=== PATIENT | female | born 1965 | race Caucasian/White ===

== ENCOUNTER 2018-03-14 14:52 | Observation (INO) | payer OTHER ==
--- NOTE | 2018-03-14 16:22 | PDOC ---
Attending Attestation - Resident Resident Name: Yudelka Morfin - ED Attending Attestation I have performed the following: I have examined & evaluated the patient, The case was reviewed & discussed with the resident, I agree w/resident's findings & plan, Exceptions are as noted - HPI HPI: 03/14/18 16:16 52 year old female with history of anemia sent in for Hgb ~6.5. The patient endorsed some mild SOB and VICTOR, but denies CP. Pt states that she still has her menstrual cycle every month. Lately, has noted to have heavier periods. She is currently on her period. Went for routine blood work and noted a Hgb of ~6.5. Sent the patient in for blood transfusion. - Physicial Exam PE: 03/14/18 16:28 GENERAL: Awake, alert, and fully oriented, in no acute distress HEAD: No signs of trauma EYES: EOMI, sclera anicteric, conjunctiva clear ENT: Auricles normal inspection, hearing grossly normal, nares patent, NECK: Normal ROM, supple, LUNGS: Breath sounds equal, clear to auscultation bilaterally. No wheezes, and no crackles HEART: Regular rate and rhythm, normal S1 and S2, no murmurs, rubs or gallops ABDOMEN: Soft, nontender, No guarding, no rebound. No masses EXTREMITIES: Normal range of motion, no edema. No clubbing or cyanosis. No cords, erythema, or tenderness NEUROLOGICAL: Cranial nerves II through XII grossly intact. Normal speech, normal gait SKIN: Warm, Dry, normal turgor, no rashes or lesions noted. - Medical Decision Making 03/14/18 16:29 Vital Signs Temp Pulse Resp BP Pulse Ox 98.5 F 95 H 18 131/74 99 03/14/18 14:55 03/14/18 14:55 03/14/18 14:55 03/14/18 14:55 03/14/18 14:55 52 year old female presents with anemia. Will need PRBC transfusion Pt denies rectal bleeding. I suspect her menstrual cycle as a source. However, will need further workup as an inpatient for anemia. Admit. Heart Score/ECG Review #1 ECG reviewed & interpreted by me at: 16:15 03/14/18 16:22 NSR 84, no std/erick, low voltage QRS, QTC 470 msec
[2018-03-14 16:23] LABS: BASO % 0.9 % (0-2.0); EOS % 2.2 % (0-4.5); HEMATOCRIT 21.9 % (32.4-45.2); LYMPH % 17.7 % (8-40); MCHC 28.8 g/dl (32.0-36.0); MEAN CELL VOLUME 64.1 fl (80-96); MEAN PLT VOLUME 7.6 fl (7.5-11.1); MONO % 7.4 % (3.8-10.2); NEUT % 71.8 % (42.8-82.8); PLATELET COUNT 582 K/MM3 (134-434); RBC 3.42 M/mm3 (3.60-5.2); RDW 18.4 % (11.6-15.6); WHITE BLOOD COUNT 6.7 K/mm3 (4.0-10.0)
[2018-03-14 16:26] LABS: HEMOGLOBIN 6.3 GM/dL (10.7-15.3); MCH 18.5 pg (25.7-33.7)
--- NOTE | 2018-03-14 16:32 | PDOC ---
History of Present Illness - General Chief Complaint: Revisit, Lab Variance Stated Complaint: ABDNORMAL BLOOD WORK Time Seen by Provider: 03/14/18 15:19 - History of Present Illness Initial Comments: 52yo F with previous low hemoglobin requiring transfusion last year presenting with low hemoglobin. The lab test was routine and performed by Dr. Hunter. Patient was told today to come into the emergency department for a hemoglobin of 6.3. Patient reports that her last menstural period was two days ago and was heavier than usual, requiring 7 pads a day (more than the usual 3 or 4). The menstrual period lasted five days which is normal for her. Patient reports heavy periods for the last 3 or 4 months. Last year, her decontamination worker diagnosed her with a uterine pathology for which she has a Friday appointment (patient did not remember which doctor or what diagnosis). She reports some dyspnea on exertion, but denies fever, chills, chest pain, abdominal pain, bloody stools, or dark tarry stools. 03/14/18 16:56 Past History - Past Medical History Allergies/Adverse Reactions: Allergies Allergy/AdvReac Type Severity Reaction Status Date / Time No Known Allergies Allergy Verified 03/14/18 14:57 Home Medications: Ambulatory Orders Folic Acid - 1 mg PO DAILY 03/14/18 Anemia: Yes (with transfusions) Cancer: No Cardiac Disorders: No CVA: No COPD: No Dementia: No HTN: No Hypercholesterolemia: No Seizures: No - Surgical History Abdominal Surgery: No Neurologic Surgery: No - Suicide/Smoking/Psychosocial Hx Smoking History: Never smoked Hx Alcohol Use: No Drug/Substance Use Hx: No Substance Use Type: None Review of Systems - Review of Systems Comments:: Constitutional: no fever, no chills Cardiovascular: no chest pain, no palpitations Respiratory: +shortness of breath, no cough Gastrointestinal: no abdominal pain, no nausea, no vomiting Genitourinary: no dysuria, no frequency Musculoskeletal: no myalgia, no arthralgia Skin: no rash, no itching Neurologic: no headache, no dizziness *Physical Exam - Vital Signs Last Vital Signs Temp Pulse Resp BP Pulse Ox 98.5 F 95 H 18 131/74 99 03/14/18 14:55 03/14/18 14:55 03/14/18 14:55 03/14/18 14:55 03/14/18 14:55 - Physical Exam Comments: General: Awake, alert, and fully oriented, in no acute distress Head: no signs of trauma Eyes: EOMI, sclera anicteric ENT: Moist mucus membranes, Neck: Normal ROM, supple Lungs: Lungs clear, Normal breath sounds Cardio: Regular rhythm, S1 and S2 present, Abdomen: Soft, nontender, normal bowel sounds Extremities: Normal range of motion, Distal pulses present. SKIN: Warm, Dry, normal turgor, no rashes or lesions noted Neurologic: Cranial nerves II through XII grossly intact. Normal speech ED Treatment Course - LABORATORY CBC & Chemistry Diagram: 03/14/18 15:56 03/14/18 15:56 - ADDITIONAL ORDERS Additional order review: 03/14/18 15:56 RBC 3.42 L MCV 64.1 L MCHC 28.8 L RDW 18.4 H MPV 7.6 Neutrophils % 71.8 Lymphocytes % 17.7 D Monocytes % 7.4 Eosinophils % 2.2 Basophils % 0.9 Medical Decision Making - Medical Decision Making Call from lab. Hgb of 6.3. Will order 2 units of PRBCs. Anemia likely due to abnormal uterine bleeding. Menstrual period is at the end of her cycle, only using about 1 pad/day. Fecal occult blood test ordered. Patient denies bloody stool, dark tarry stool, hemoptysis. 03/14/18 16:28 Spoke with hospitalist team who will accept patient for observation. Laboratory Tests 03/14/18 03/14/18 03/14/18 15:56 15:56 15:56 WBC 6.7 RBC 3.42 L Hgb 6.3 L* Hct 21.9 L D MCV 64.1 L MCH 18.5 L D MCHC 28.8 L RDW 18.4 H Plt Count 582 H D MPV 7.6 Absolute Neuts (auto) 4.8 Neutrophils % 71.8 Lymphocytes % 17.7 D Monocytes % 7.4 Eosinophils % 2.2 Basophils % 0.9 Nucleated RBC % 0 Sodium 138 Potassium 4.1 Chloride 106 Carbon Dioxide 27 Anion Gap 5 L BUN 9 Creatinine 0.6 Creat Clearance w eGFR > 60 Random Glucose 103 Calcium 8.7 Total Bilirubin 0.2 AST 17 ALT 16 Alkaline Phosphatase 93 Troponin I < 0.02 Total Protein 7.1 Albumin 3.4 Stool Occult Blood Blood Type B POSITIVE Antibody Screen Negative Crossmatch See Detail 03/14/18 16:53 WBC RBC Hgb Hct MCV MCH MCHC RDW Plt Count MPV Absolute Neuts (auto) Neutrophils % Lymphocytes % Monocytes % Eosinophils % Basophils % Nucleated RBC % Sodium Potassium Chloride Carbon Dioxide Anion Gap BUN Creatinine Creat Clearance w eGFR Random Glucose Calcium Total Bilirubin AST ALT Alkaline Phosphatase Troponin I Total Protein Albumin Stool Occult Blood Negative Blood Type Antibody Screen Crossmatch *DC/Admit/Observation/Transfer Diagnosis at time of Disposition: Anemia - Discharge Dispostion Condition at time of disposition: Stable Decision to Admit order: Yes - Referrals - Patient Instructions - Post Discharge Activity
[2018-03-14 16:43] LABS: ALBUMIN 3.4 g/dl (3.4-5.0); ANION GAP 5 (8-16); BILIRUBIN,TOTAL 0.2 mg/dL (0.2-1.0); BLOOD UREA NITROGEN 9 mg/dL (7-18); CALCIUM 8.7 mg/dL (8.5-10.1); CHLORIDE 106 mmol/L (98-107); CO2 27 mmol/L (21-32); CREATININE 0.6 mg/dL (0.55-1.02); GLUCOSE,RANDOM 103 mg/dL (74-106); POTASSIUM 4.1 mmol/L (3.5-5.1); SGOT/AST 17 U/L (15-37); SGPT/ALT 16 U/L (12-78); SODIUM 138 mmol/L (136-145)
[2018-03-14 16:45] LABS: ALK PHOS 93 U/L (45-117); TOT PROT 7.1 g/dl (6.4-8.2)
--- NOTE | 2018-03-14 19:25 | HP ---
CHIEF COMPLAINT: Fatigue, Vaginal Bleeding PCP: Dr. Carrera HISTORY OF PRESENT ILLNESS: This is a 52 y/o woman with a past medical history of Anemia (blood transfusion , 2-3 yrs ago). Who presents to the ED with her family sent in by her PCP for admission, Anemia. Patient reports having increased fatigue and heavy vaginal bleeding. Patient reports having her menses Day 5, using 2-3 sanitary pads/hr with small clots and mild abdominal cramping. Patient denies SOB at present. Patient reports having an appt with her Lens Matcher this Friday for same. Patient denies fever, chills, cough, CP, palpitations, N/V/D, constipation, dysuria. 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, homemaker Family History: Non-contributory Allergies No Known Allergies Allergy (Verified 03/14/18 14:57) HOME MEDICATIONS: Home Medications Medication Instructions Recorded Folic Acid - 1 mg PO DAILY 03/14/18 REVIEW OF SYSTEMS CONSTITUTIONAL: generalized weakness, malaise Absent: fever, chills, diaphoresis, loss of appetite, weight change HEENT: Absent: rhinorrhea, nasal congestion, throat pain, throat swelling, difficulty swallowing, mouth swelling, ear pain, eye pain, visual changes CARDIOVASCULAR: Absent: chest pain, syncope, palpitations, irregular heart rate, lightheadedness , peripheral edema RESPIRATORY: Absent: cough, shortness of breath, dyspnea with exertion, orthopnea, wheezing, stridor, hemoptysis GASTROINTESTINAL: Absent: abdominal pain, abdominal distension, nausea, vomiting, diarrhea, constipation, melena, hematochezia GENITOURINARY: Absent: dysuria, frequency, urgency, hesitancy, hematuria, flank pain, genital pain MUSCULOSKELETAL: Absent: myalgia, arthralgia, joint swelling, back pain, neck pain SKIN: Absent: rash, itching, pallor HEMATOLOGIC/IMMUNOLOGIC: Absent: easy bleeding, easy bruising, lymphadenopathy, frequent infections ENDOCRINE: Absent: unexplained weight gain, unexplained weight loss, heat intolerance, cold intolerance NEUROLOGIC: Absent: headache, focal weakness or paresthesias, dizziness, unsteady gait, seizure, mental status changes, bladder or bowel incontinence PSYCHIATRIC: Absent: anxiety, depression, suicidal or homicidal ideation, hallucinations. PHYSICAL EXAMINATION Vital Signs - 24 hr 03/14/18 03/14/18 03/14/18 14:55 16:53 17:51 Temperature 98.5 F 98.4 F Pulse Rate 95 H Pulse Rate [ 82 Right Radial] Respiratory 18 20 Rate Blood Pressure 131/74 Blood Pressure 117/77 [Left Arm] O2 Sat by Pulse 99 99 100 Oximetry (%) 03/14/18 18:08 Temperature 98.3 F Pulse Rate Pulse Rate [ 87 Right Radial] Respiratory 20 Rate Blood Pressure Blood Pressure 126/75 [Left Arm] O2 Sat by Pulse 100 Oximetry (%) GENERAL: Awake, alert, and fully oriented, in no acute distress. HEAD: Normal with no signs of trauma. EYES: Pupils equal, round and reactive to light, extraocular movements intact, sclera anicteric, conjunctiva clear, pale. No lid lag. EARS, NOSE, THROAT: Ears normal, nares patent, oropharynx clear without exudates. Moist mucous membranes. NECK: Normal range of motion, supple without lymphadenopathy, JVD, or masses. LUNGS: Breath sounds equal, clear to auscultation bilaterally. No wheezes, and no crackles. No accessory muscle use. HEART: Regular rate and rhythm, normal S1 and S2 without murmur, rub or gallop. ABDOMEN: Soft, nontender, not distended, normoactive bowel sounds, no guarding, no rebound, no masses. No hepatomegaly or splenomegaly. MUSCULOSKELETAL: Normal range of motion at all joints. No bony deformities or tenderness. No CVA tenderness. UPPER EXTREMITIES: 2+ pulses, warm, well-perfused. No cyanosis. No clubbing. No peripheral edema. LOWER EXTREMITIES: 2+ pulses, warm, well-perfused. No calf tenderness. No peripheral edema. NEUROLOGICAL: Cranial nerves II-XII intact. Normal speech. Normal gait. PSYCHIATRIC: Cooperative. Good eye contact. Appropriate mood and affect. SKIN: Warm, dry, normal turgor, no rashes or lesions noted, normal capillary refill. Laboratory Results - last 24 hr 03/14/18 03/14/18 03/14/18 15:56 15:56 15:56 WBC 6.7 RBC 3.42 L Hgb 6.3 L* Hct 21.9 L D MCV 64.1 L MCH 18.5 L D MCHC 28.8 L RDW 18.4 H Plt Count 582 H D MPV 7.6 Absolute Neuts (auto) 4.8 Neutrophils % 71.8 Lymphocytes % 17.7 D Monocytes % 7.4 Eosinophils % 2.2 Basophils % 0.9 Nucleated RBC % 0 Sodium 138 Potassium 4.1 Chloride 106 Carbon Dioxide 27 Anion Gap 5 L BUN 9 Creatinine 0.6 Creat Clearance w eGFR > 60 Random Glucose 103 Calcium 8.7 Total Bilirubin 0.2 AST 17 ALT 16 Alkaline Phosphatase 93 Troponin I < 0.02 Total Protein 7.1 Albumin 3.4 Stool Occult Blood Blood Type B POSITIVE Antibody Screen Negative Crossmatch See Detail 03/14/18 16:53 WBC RBC Hgb Hct MCV MCH MCHC RDW Plt Count MPV Absolute Neuts (auto) Neutrophils % Lymphocytes % Monocytes % Eosinophils % Basophils % Nucleated RBC % Sodium Potassium Chloride Carbon Dioxide Anion Gap BUN Creatinine Creat Clearance w eGFR Random Glucose Calcium Total Bilirubin AST ALT Alkaline Phosphatase Troponin I Total Protein Albumin Stool Occult Blood Negative Blood Type Antibody Screen Crossmatch ASSESSMENT/PLAN: 52 y/o woman with a PMHx of Anemia. Placed in Observation for Symptomatic Anemia for further evaluation of their emergent condition. Plan: 1. Symptomatic Anemia - Likely secondary to Menorrhagia - Hgb 6.3 - Pt received 1PRBC in ED, 2nd pending - Add on FE, TIBC, Ferritin to prior lab draw - Repeat CBC in am - Stool Occult- negative - Monitor vitals - f/u with WORKERS COMPENSATION CLAIMS ANALYST on Friday - Continue folic acid - Consider iron supplements, with colace 2. Genaralized Weakness- Malaise - See Above 3. FEN - PO fluids as tolerated - Replete lytes prn - Regular Diet 4. DVT ppx - OOB - SCDs - Hold AC secondary to Anemia Code Status: Full Code Dispo: Observation Problem List - Problem (1) Anemia Code(s): D64.9 - ANEMIA, UNSPECIFIED (2) Dysfunctional uterine bleeding Code(s): N93.8 - OTHER SPECIFIED ABNORMAL UTERINE AND VAGINAL BLEEDING Visit type - Emergency Visit Emergency Visit: Yes ED Registration Date: 03/14/18 Care time: The patient presented to the Emergency Department on the above date and was hospitalized for further evaluation of their emergent condition. - New Patient This patient is new to me today: Yes Date on this admission: 03/14/18 - Critical Care Critical Care patient: No Hospitalist Screening - Colonoscopy Questionnaire Colonoscopy Questionnaire: Colonoscopy Questionnaire - Patient: 50 - 75 years old and never had a screening colonoscopy: No History of colon or rectal polyps, or CA: No History of IBD, Crohn's disease or UC: No History of abdominal radiation therapy as a child: No - Relative: 1 with colon or rectal CA, or polyps at age 60 or younger: No Colon or rectal CA diagnosed at age 45 or younger: No Multiple relatives with colon or rectal CA: No - Outcome: Screening Result: Negative Screen
[2018-03-14 20:41] LABS: ANISOCYTOSIS 3+; MACROCYTOSIS 1+
[2018-03-14 20:42] LABS: OVALOCYTE 1+; PLATELET ESTIMATE INCREASED
[2018-03-14 21:28] VITALS: BMI 28.7
[2018-03-15 07:39] LABS: BASO % 1.1 % (0-2.0); EOS % 1.9 % (0-4.5); HEMATOCRIT 27.5 % (32.4-45.2); HEMOGLOBIN 8.5 GM/dL (10.7-15.3); LYMPH % 21.1 % (8-40); MCH 21.4 pg (25.7-33.7); MCHC 31.1 g/dl (32.0-36.0); MEAN CELL VOLUME 68.8 fl (80-96); MEAN PLT VOLUME 7.2 fl (7.5-11.1); MONO % 9.9 % (3.8-10.2); PLATELET COUNT 489 K/MM3 (134-434); WHITE BLOOD COUNT 6.7 K/mm3 (4.0-10.0)
[2018-03-15 08:09] LABS: CHLORIDE 106 mmol/L (98-107); POTASSIUM 4.3 mmol/L (3.5-5.1); SODIUM 139 mmol/L (136-145)
[2018-03-15 08:16] LABS: ANION GAP 6 (8-16); BLOOD UREA NITROGEN 7 mg/dL (7-18); CALCIUM 8.5 mg/dL (8.5-10.1); CO2 27 mmol/L (21-32); CREATININE 0.6 mg/dL (0.55-1.02); GLUCOSE,RANDOM 82 mg/dL (74-106)
[2018-03-15 08:49] LABS: PLATELET ESTIMATE INCREASED
[2018-03-15 08:51] LABS: ADD RBC MORPHOLOGY YES
[2018-03-15] MEDS: FOLIC ACID 1 MG TABLET (FP) PO SCH (10:17)
--- NOTE | 2018-03-15 11:25 | PN ---
Progress Note, Physician Chief Complaint: SENT FROM MY OFFICE FOR ANEMIA H/H .03/28 TRANSFUSED HERE WITH PRBC NAD EVENTS AND NOTES REVIEWED C/O VAGINAL BLEEDING - Current Medication List Current Medications: Active Medications Folic Acid (Folic Acid -) 1 mg PO DAILY YUMI Last Admin: 03/15/18 10:17 Dose: 1 mg - Objective Vital Signs: Vital Signs Temperature 97.8 F 03/15/18 10:16 Pulse Rate 77 03/15/18 10:16 Respiratory Rate 20 03/15/18 10:16 Blood Pressure 116/81 03/15/18 10:16 O2 Sat by Pulse Oximetry (%) 100 03/14/18 22:26 Constitutional: Yes: No Distress Eyes: Yes: WNL HENT: Yes: WNL Neck: Yes: WNL Cardiovascular: Yes: WNL Respiratory: Yes: WNL Gastrointestinal: Yes: WNL Genitourinary: Yes: Vaginal Bleeding Musculoskeletal: Yes: WNL Extremities: Yes: WNL Edema: No Peripheral Pulses WNL: Yes Integumentary: Yes: WNL Wound/Incision: Yes: Clean/Dry Neurological: Yes: WNL ...Motor Strength: WNL Psychiatric: Yes: WNL Labs: CBC, BMP 03/15/18 06:55 03/15/18 06:55 Problem List - Problems (1) Anemia Code(s): D64.9 - ANEMIA, UNSPECIFIED (2) Abnormal menses Code(s): N92.6 - IRREGULAR MENSTRUATION, UNSPECIFIED (3) Dysfunctional uterine bleeding Code(s): N93.8 - OTHER SPECIFIED ABNORMAL UTERINE AND VAGINAL BLEEDING Assessment/Plan CHECK [facility] HAS APPOINTMENT TOMORROW WITH DR MOJICA DIRECT OF REAL ESTATE HEME WORKUP IN PROGRESS CHECK CBC IN AM IF H/H STALE CAN GO HOME
--- NOTE | 2018-03-15 20:03 | EKG ---
Test Reason : Blood Pressure : / mmHG Vent. Rate : 084 BPM Atrial Rate : 084 BPM P-R Int : 138 ms QRS Dur : 070 ms QT Int : 398 ms P-R-T Axes : 056 016 024 degrees QTc Int : 470 ms NORMAL SINUS RHYTHM LOW VOLTAGE QRS BORDERLINE ECG WHEN COMPARED WITH ECG OF 16-SEP-2015 12:38, PREMATURE VENTRICULAR COMPLEXES ARE NO LONGER PRESENT PREMATURE ATRIAL COMPLEXES ARE NO LONGER PRESENT Confirmed by TRELL SALMON, DEBBIE ([id number]) on 03/15/2018 8:02:42 PM Referred By: Confirmed By:DEBBIE CAI MD
[2018-03-16 06:36] VITALS: TEMP 97.8
--- NOTE | 2018-03-16 07:36 | DS ---
Physical Examination Vital Signs: Vital Signs Temperature 97.8 F 03/16/18 06:00 Pulse Rate 69 03/16/18 06:00 Respiratory Rate 18 03/16/18 06:00 Blood Pressure 114/79 03/16/18 06:00 O2 Sat by Pulse Oximetry (%) 98 03/16/18 02:00 Constitutional: Yes: No Distress Eyes: Yes: WNL HENT: Yes: WNL Neck: Yes: WNL Cardiovascular: Yes: WNL Respiratory: Yes: WNL Gastrointestinal: Yes: WNL Renal/: Yes: WNL Musculoskeletal: Yes: WNL Extremities: Yes: WNL Edema: No Peripheral Pulses WNL: Yes Integumentary: Yes: WNL Wound/Incision: Yes: Clean/Dry Neurological: Yes: WNL ...Motor Strength: WNL Psychiatric: Yes: WNL Labs: CBC, BMP 03/15/18 06:55 03/15/18 06:55 Discharge Summary Reason For Visit: ANEMIA Current Active Problems Anemia (Acute) Procedures: Principal: transfused prbc Hospital Course: admitted for acute anemia, likely iron def., transfused prbc, can go home after iron transfusion and hematolgy consult Condition: Stable - Instructions Diet, Activity, Other Instructions: see oncology Dr Mir Equipment Cleaner And Tester Dr Gabriella Carrera this week for labs Referrals: Jet Carrera MD [Primary Care Provider] - Disposition: HOME - Home Medications Comprehensive Discharge Medication List: Ambulatory Orders Folic Acid - 1 mg PO DAILY 03/14/18
[2018-03-16 08:06] LABS: SERUM IRON SATURATION 2 % (15-55); TOTAL IRON BINDING CAPACITY 469 ug/dL (250-450); UIBC 459 ug/dL (131-425)
[2018-03-16 08:25] LABS: HEMATOCRIT 30.5 % (32.4-45.2); HEMOGLOBIN 9.4 GM/dL (10.7-15.3); MCH 21.3 pg (25.7-33.7); MCHC 30.9 g/dl (32.0-36.0); MEAN PLT VOLUME 7.3 fl (7.5-11.1); PLATELET COUNT 524 K/MM3 (134-434); RBC 4.42 M/mm3 (3.60-5.2); RDW 22.2 % (11.6-15.6); WHITE BLOOD COUNT 6.4 K/mm3 (4.0-10.0)
[2018-03-16] MEDS ORDERED: IRON SUCROSE INJECTION 200 MG in SODIUM CHLORIDE 240 ML IVPB ONE (09:00)
[2018-03-16] MEDS ORDERED: IRON SUCROSE INJECTION 200 MG in SODIUM CHLORIDE 100 ML IVPB ONE (09:00)
[2018-03-16] MEDS: FOLIC ACID 1 MG TABLET (FP) PO SCH (09:21)
[2018-03-16 10:14] VITALS: BP 114/77; PULSE 76
== END 2018-03-16 10:46 | disposition home or self-care (01) ==
LOC: JER 14:52 → JERBED 18:17 → J5S 21:02
PROVIDERS: ADMIT Family Medicine; ATTEND Family Medicine
PROC: 30233N1 Transfusion of Nonautologous Red Blood Cells into Peripheral Vein, Percutaneous Approach (ICD-10-PCS; principal; 2018-03-14)
PROC: 3E033GC Introduction of Other Therapeutic Substance into Peripheral Vein, Percutaneous Approach (ICD-10-PCS; 2018-03-14)
DX: D64.9 Anemia, unspecified (principal); N92.6 Irregular menstruation, unspecified; N93.8 Other specified abnormal uterine and vaginal bleeding
CPT/HCPCS: 36415; 36430; 80048; 80053; 82272; 82728; 83540; 83550; 84484; 85025; 85027; 86850; 86900; 86901; 86922; 93005; 93010; 96365; 99285-25; G0378; J1756; P9038; P9058

== ENCOUNTER 2018-04-27 05:45 | Inpatient (IN) | payer OTHER ==
[2018-04-22 17:18] VITALS: BMI 28.3
[2018-04-27] MEDS ORDERED: PROPOFOL 20 ML ONE ×2 (12:58→15:06)
[2018-04-27] MEDS ORDERED: fentaNYL CITRATE 250 MCG/5 ML VIAL ONE (12:58)
[2018-04-27] MEDS ORDERED: ROCURONIUM BROMIDE 50 MG/5 ML VIAL ONE (12:58)
[2018-04-27] MEDS ORDERED: ROPIVACAINE HCL 0.5% 30ML VIAL ONE (14:14)
[2018-04-27] MEDS ORDERED: MIDAZOLAM HCL 2 MG/2 ML SINGLE DOSE VIAL ONE ×2 (14:16)
[2018-04-27] MEDS ORDERED: DEXAMETHASONE SOD PHOSPHATE/PF 10 MG/ML SDV ONE (14:21)
[2018-04-27] MEDS ORDERED: VASOPRESSIN 20 UNITS/ML VIAL IV ONE ×4 (14:29→15:16)
[2018-04-27] MEDS ORDERED: METHYLERGONOVINE MALEATE 0.2 MG/1 ML AMP IM PRN (14:30)
[2018-04-27] MEDS ORDERED: IBUPROFEN 600 MG TABLET (FP) PO PRN (14:30)
[2018-04-27] MEDS ORDERED: ACETAMINOPHEN 325 MG TABLET (FP) PO PRN (14:30)
[2018-04-27] MEDS ORDERED: oxyCODONE HCL 5 MG TABLET PO PRN (14:30)
--- NOTE | 2018-04-27 14:30 | HP ---
History & Physical Update - History History: No Change - Physical Physical: No Change - Assessment Assessment: No Change - Plan Plan: No Change (Uterine fibroid, for abdominal myomectomy)
[2018-04-27] MEDS ORDERED: CEFAZOLIN 2 GM/D5W 2 GM/50 ML ML IVPB ONE (14:45)
[2018-04-27] MEDS ORDERED: SUCCINYLCHOLINE CHLORIDE 200 MG/10 ML VIAL ONE (15:07)
[2018-04-27] MEDS ORDERED: ceFAZolin SODIUM 1 GM VIAL IVPB ONE (15:25)
[2018-04-27] MEDS ORDERED: ACETAMINOPHEN INJECTION 100 ML IVPB ONE (15:34)
[2018-04-27] MEDS ORDERED: NEOSTIGMINE METHYLSULFATE 0.5 MG/ML - 10 ML MDV ONE (15:43)
[2018-04-27] MEDS ORDERED: KETOROLAC TROMETHAMINE 30 MG/1 ML VIAL ONE (15:43)
[2018-04-27] MEDS ORDERED: GLYCOPYRROLATE 0.2 MG/1 ML VIAL ONE (15:43)
[2018-04-27] MEDS ORDERED: IBUPROFEN 800 MG/8 ML IJ IVPB PRN ×2 (16:00→22:35)
[2018-04-27] MEDS ORDERED: ONDANSETRON 4 MG/2 ML VIAL IVPUSH PRN ×2 (16:42)
[2018-04-27] MEDS ORDERED: PROMETHAZINE HCL 25 MG/1 ML VIAL IVPB PRN (16:42)
[2018-04-27] MEDS ORDERED: PROMETHAZINE HCL 25 MG/1 ML VIAL IVPUSH PRN (16:42)
[2018-04-27] MEDS ORDERED: HYDROmorphone *PCA* 10MG/50ML DISP.SYRIN PCA SCH (16:45)
--- NOTE | 2018-04-27 16:51 | OP ---
<Sindi Dyson - Last Filed: 04/27/18 16:51> Operative Note - Note: Operative Date: 04/27/18 Pre-Operative Diagnosis: Fibroids Operation: Open abdominal myomectomy Post-Operative Diagnosis: Same as Pre-op Surgeon: Francheska Kenny Post Tronic Machine Operator: Sindi Dyson (second assist: Sebastien Portillo PA-C) Anesthesiologist/EVENT PROMOTER: Joey Lopez (Tap block) Anesthesia: General Specimens Removed: One large fibroid, one small fibroid Estimated Blood Loss (mls): 50 Drains, Volume Out (mls): 300 (martinez-clear) Fluid Volume Replaced (mls): 1,100 Operative Report Dictated: Yes <Francheska Kenny - Last Filed: 04/29/18 20:42> Operative Note - Note: Pre-Operative Diagnosis: dictation number [id number]
[2018-04-27] MEDS ORDERED: HYDROmorphone *PCA* 10MG/50ML DISP.SYRIN PCA ONE (16:56)
--- NOTE | 2018-04-27 16:57 | SURG ---
Surgery Vice President Of Software Development Note Vice President Of Software Development: Sindi Dyson PA-C (Suzy) Date of Service: 04/27/18 Diagnosis: Fibroids Procedure: Open abdominal myomectomy I was present for the entirety of the operative procedure. For further detail, please refer to operative report.
[2018-04-27] MEDS: LACTATED RINGERS SOLUTION 1,000 ML IV SCH ×2 (18:54→19:20)
[2018-04-27] MEDS: PANTOPRAZOLE SODIUM 40 MG VIAL IVPUSH SCH (22:14)
[2018-04-28 07:10] LABS: HEMATOCRIT 29.2 % (32.4-45.2); HEMOGLOBIN 9.3 GM/dL (10.7-15.3); LYMPH % 6.6 % (8-40); MCH 26.1 pg (25.7-33.7); MCHC 31.8 g/dl (32.0-36.0); MEAN CELL VOLUME 81.9 fl (80-96); MEAN PLT VOLUME 7.4 fl (7.5-11.1); MONO % 7.3 % (3.8-10.2); NEUT % 86.1 % (42.8-82.8); PLATELET COUNT 332 K/MM3 (134-434); RBC 3.57 M/mm3 (3.60-5.2); RDW 29.5 % (11.6-15.6); WHITE BLOOD COUNT 9.4 K/mm3 (4.0-10.0)
--- NOTE | 2018-04-28 07:12 | PN ---
Progress Note (short form) - Note Progress Note: 52 yo status post abdominal myomectomy, seen and evaluated. She's lying in bed; she only c/o mild discomfort. PE : Chest : CTA, no rales Hear : S1S2, RRR, no murmur. ABD : Soft, dressing dry and intact + incision pain ASS / Plan : Status post myomectomy Continue analgesia Ambulation D/C martinez catheter and IV fluid Regular diet F/U repeat CBC
[2018-04-28] MEDS: ACETAMINOPHEN 325 MG TABLET (FP) PO PRN (08:10)
--- NOTE | 2018-04-28 08:32 | PN ---
Progress Note (short form) - Note Progress Note: Anesthesia Post op/Pain Pt seen and examined S:Alert and awake comfortable O: Vital Signs Temperature 97.9 F 04/28/18 06:00 Pulse Rate 57 L 04/28/18 06:00 Respiratory Rate 04/28/18 06:00 Blood Pressure 95/58 04/28/18 06:00 O2 Sat by Pulse Oximetry (%) 100 04/27/18 19:20 CBC, BMP 04/28/18 06:35 A/P s/pabd myomectomy Doing well post op Continue PYTHON DJANGO DEVELOPER Continue current care Urbano Cerda MD
[2018-04-28] MEDS: PANTOPRAZOLE SODIUM 40 MG VIAL IVPUSH SCH (09:34)
[2018-04-28] MEDS: oxyCODONE HCL 5 MG TABLET PO PRN ×2 (11:33→20:53)
[2018-04-28] MEDS: IBUPROFEN 600 MG TABLET (FP) PO PRN ×2 (11:34→20:53)
[2018-04-28] MEDS ORDERED: BISACODYL 10 MG SUPP.RECT RC PRN (14:30)
[2018-04-28] MEDS: SIMETHICONE 80 MG TAB.CHEW (FP) PO PRN (20:52)
--- NOTE | 2018-04-29 07:28 | PN ---
Progress Note (short form) - Note Progress Note: Pt seen and examined. Laying in bed in nad. States she feels well, denies pain at this time (last pain meds were last night-ibuprofen/oxycodone 5mg). Tolerating PO, has been oob without issue. Voiding, denies any urinary sxs. Has some light vaginal bleeding per pt. Denies cp/sob, n/v/d, calf pain/edema. Vital Signs Temp 98.1 F 04/28/18 22:00 Pulse 78 04/28/18 22:00 Resp 18 04/28/18 22:00 BP 107/74 04/28/18 22:00 Pulse Ox 100 04/27/18 19:20 Intake & Output 04/28/18 04/28/18 04/29/18 11:59 23:59 11:59 Intake Total 1200 700 Output Total 1800 1000 Balance -600 -300 Intake: IV 1000 600 Lactated Ringers Solution 1000 600 1,000 ml @ 125 mls/hr IV ASDIR YUMI Rx#: [id number] IVPB 100 Oral 200 Output: Urine 1800 1000 Holguin 1700 Void 100 1000 Other: Voiding Method Toilet Labs: CBC, BMP 04/29/18 08:05 04/29/18 08:05 Exam: Gen: laying in bed in nad Abdo: soft, nt/nd, dressing c/d/i, incision with steri-strips in place, c/d/i, no erythema or drainage. A/P: 52 y/o F w/ PMHx fibroids, now POD2, s/p open abdominal myomectomy. Pt doing well post op, CT TECH d/c'ed last night, pain controlled on PO pain meds. VSS, +voiding, tolerating PO, oob without issue. Vaginal bleeding improving. -labs stable -D/c home early this afternoon above d/w attending, Dr Kenny
[2018-04-29 08:09] VITALS: BP 111/68; PULSE 67; TEMP 98.8
[2018-04-29 08:22] LABS: BASO % 0.5 % (0-2.0); EOS % 1.3 % (0-4.5); HEMATOCRIT 28.3 % (32.4-45.2); HEMOGLOBIN 9.1 GM/dL (10.7-15.3); LYMPH % 26.4 % (8-40); MCH 26.6 pg (25.7-33.7); MCHC 32.2 g/dl (32.0-36.0); MEAN CELL VOLUME 82.6 fl (80-96); MEAN PLT VOLUME 7.2 fl (7.5-11.1); MONO % 8.5 % (3.8-10.2); NEUT % 63.3 % (42.8-82.8); PLATELET COUNT 355 K/MM3 (134-434); RBC 3.43 M/mm3 (3.60-5.2); RDW 29.5 % (11.6-15.6); WHITE BLOOD COUNT 7.6 K/mm3 (4.0-10.0)
[2018-04-29 08:44] LABS: ANION GAP 3 MMOL/L (8-16); BLOOD UREA NITROGEN 14 mg/dL (7-18); CALCIUM 8.5 mg/dL (8.5-10.1); CHLORIDE 107 mmol/L (98-107); CO2 30 mmol/L (21-32); CREATININE 0.6 mg/dL (0.55-1.3); GLUCOSE,RANDOM 93 mg/dL (74-106); POTASSIUM 4.5 mmol/L (3.5-5.1); SODIUM 140 mmol/L (136-145)
[2018-04-29] MEDS: IBUPROFEN 600 MG TABLET (FP) PO PRN (09:46)
[2018-04-29] MEDS: ACETAMINOPHEN 325 MG TABLET (FP) PO PRN (09:46)
[2018-04-29] MEDS: SIMETHICONE 80 MG TAB.CHEW (FP) PO PRN (09:46)
[2018-04-29] MEDS: PANTOPRAZOLE SODIUM 40 MG VIAL IVPUSH SCH (09:48)
--- NOTE | 2018-04-29 14:14 | DS ---
Physical Exam: SUBJECTIVE: Patient seen and examined OBJECTIVE: Vital Signs Period Temp Pulse Resp BP Sys/Bryan Pulse Ox Last 24 Hr 98.1 F-98.8 F 64-78 18-20 101-111/58-74 PHYSICAL EXAM GENERAL: The patient is awake, alert, and fully oriented, in no acute distress. HEAD: Normal with no signs of trauma. LUNGS: Breath sounds equal, clear to auscultation bilaterally, no wheezes, no crackles, no accessory muscle use. HEART: Regular rate and rhythm, S1, S2 without murmur, rub or gallop. Gen: laying in bed in nad Abdo: soft, nt/nd, dressing c/d/i, incision with steri-strips in place, c/d/i, no erythema or drainage. LABS Laboratory Results - last 24 hr 04/29/18 04/29/18 08:05 08:05 WBC 7.6 RBC 3.43 L Hgb 9.1 L Hct 28.3 L MCV 82.6 MCH 26.6 MCHC 32.2 RDW 29.5 H Plt Count 355 MPV 7.2 L Absolute Neuts (auto) 4.8 Neutrophils % 63.3 D Lymphocytes % 26.4 D Monocytes % 8.5 Eosinophils % 1.3 D Basophils % 0.5 D Nucleated RBC % 0 Sodium 140 Potassium 4.5 Chloride 107 Carbon Dioxide 30 Anion Gap 3 L BUN 14 Creatinine 0.6 Creat Clearance w eGFR > 60 Random Glucose 93 Calcium 8.5 HOSPITAL COURSE: The patient was admitted to the [facility] after an elective open abdominal myomectomy for uterine leiomyoma's. Patient tolerated surgery well. The day of surgery, the patient ambulated the hallways with assistance. Shalonda-operative antibiotics were administered. Patient remained stable on the floor. Pain controlled via a DAMAGE PREVENTION COORDINATOR pain pump initially, pt transitioned to PO pain meds POD1. Pain continued to be well controlled on narcotic and non- narcotic pain meds. Patient tolerated PO intake, passed TOV. DVT prophylaxis was achieved with SCDs and early ambulation. Narcotic scripts were checked with [facility] prior to e-scribe. The discharge instructions and an oral pain management plan were reviewed with the patient. All questions answered. Above plan discussed with Dr. Kenny and agreed. Date of Admission:04/27/18 Date of Discharge: 04/29/18 Minutes to complete discharge: 15 Discharge Summary Reason For Visit: FIBROIDS/LEIOMYOMA Condition: Stable - Instructions Diet, Activity, Other Instructions: Dr. Francheska Kenny Special Needs Child Caregiver discharge instructions Physical activity Resume your normal everyday activity as tolerated no heavy lifting or exercise until seen by your surgeon. You may walk unlimited qasim of and climb stairs. You may resume driving the car when you feel safe and comfortable behind the wheel. No sexual activity as instructed by . Wound care If you have a bandage, leave it on, and keep dry for 48-72 hours. After that time discard the outer bandage. If they are tapes on the skin under the out of bandage leave them in place. They will peel off in the next 7 to 10 days. Do Not Peel them off. You may shower the day after surgery. If there are tapes present on the skin, you may shower over them. No baths. Diet There are no dietary restrictions. Eat healthy, high-fiber foods. Drink 6 to 8 glasses of liquid each day. This will assist in keeping your bowels are regular. Pain management You may take Tylenol or acetaminophen or Ibuprofen (for example, Motrin, Advil etc.) from my pain prescription medication is ordered should be taken as prescribed for moderate to severe pain. Call Dr. Kenny for any of the following: Severe pain not relieved by medication Fever of 101 or higher Excessive bleeding or drainage on dressing Inability to urinate Call the office at [phone] for an appointment in seven days. Referrals: Francheska Kenny DO [Staff Physician] - Disposition: HOME - Home Medications Comprehensive Discharge Medication List: Ambulatory Orders Folic Acid - 1 mg PO DAILY 03/14/18 Cholecalciferol (Vitamin D3) [Vitamin D3] 50,000 unit PO WEEKLY 04/27/18 Ferrous Sulfate 325 mg PO BID 04/27/18 Oxycodone HCl 5 mg PO Q6H PRN #15 tablet MDD 8 04/29/18 Problem List - Problems (1) Dysfunctional uterine bleeding Code(s): N93.8 - OTHER SPECIFIED ABNORMAL UTERINE AND VAGINAL BLEEDING This patient is new to me today: Yes Date on this admission: 04/29/18 Emergency Visit: No Critical Care patient: No - Discharge Referral Referred to [facility] No
--- NOTE | 2018-04-29 16:09 | PATH ---
Surgical Pathology Report Patient Name: CHELSI MOTLEY [facility]. Rec. 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 Specimen(s) Received LEIOMYOMA Clinical History Fibroids/leiomyoma Final Diagnosis 'LEIOMYOMA', ABDOMINAL MYOMECTOMY: LEIOMYOMA. Electronically Signed Veda Edwards M.D. Gross Description Received in formalin labeled "leiomyoma," is a 373 g aggregate of 2 melgar, rubbery nodules, consistent with myomas. The myomas measure 2.3 and 10.5 cm in greatest dimension. The outer surfaces are melgar with focal defects. Sectioning reveals melgar-pink, rubbery parenchyma with whorled architecture and foci of hemorrhage. Rn Progressive Care sections are submitted in 6 cassettes as follows: 1-fullface section of smaller nodule; 2-6-larger nodule. /04/28/2018 saudi04/28/2018
--- NOTE | 2018-04-29 21:06 | OP ---
DATE OF OPERATION: 04/27/2018 PREOPERATIVE DIAGNOSIS: Uterine fibroids, anemia, abnormal uterine bleeding. POSTOPERATIVE DIAGNOSIS: Uterine fibroids, anemia, abnormal uterine bleeding. PROCEDURE: Abdominal myomectomy. SURGEON: Francheska Loya D.O. PASSENGER LOCOMOTIVE ENGINEER: Jennifer Mcgill, and Jennifer Galvez ESTIMATED BLOOD LOSS: 50 mL. SPECIMENS REMOVED: Fibroids. COMPLICATIONS: None. ANESTHESIA: General. ANESTHESIOLOGIST: Joey Lopez M.D. COUNTS: Sponge, needle, instrument counts correct. DISPOSITION: Stable to PACU. BRIEF HISTORY: Patient is a 52-year-old female who presented in the office several times over the last few years with complaints of heavy vaginal bleeding with her periods and known very large uterine dominant fundal fibroid. Patient was counseled on her options and elected to undergo an abdominal myomectomy. DESCRIPTION OF PROCEDURE: The consents for the procedure were signed in the office. Patient was admitted to hospital on April 27, 2018. She was taken to the operating room and given general anesthesia, and placed in the dorsal supine position. The patient, a Holguin catheter was placed under sterile condition. She was prepped and draped in usual sterile fashion and a hard timeout was performed. A Pfannenstiel skin incision was created in the skin with a scalpel and carried to the underlying layer of rectus fascia. With deep Bovie, the fascia was incised in the midline, and the fascia was then tented upward and dissected off the underlying layer fascial incision was extended in a superolateral direction, then the fascia was tented upward and dissected off the underlying layer of rectus muscle with the Bovie. Then rectus muscles identified in the midline, and laterally. The peritoneum was entered bluntly and dissected to allow for adequate room for the surgery. The uterus was then exteriorized from the abdomen and a large dominant fundal fibroid was appreciated. Approximately 10 mL of dilute vasopressin was injected into the uterine serosa, and a transverse incision on the fundus of the uterus was completed down to the level of the fibroid. The fibroid was from its capsule with sharp and blunt dissection and removed in its entirety, and a smaller 2-3 cm left corneal fibroid was noted. An incision was created over the uterine serosa over the fibroid, and this fibroid was from its capsule and removed in its entirety. The defect in the uterus was reapproximated in several layers using 0 Vicryl suture and 0 V-Loc suture. Excellent hemostasis was achieved. Bilateral tubes and ovaries were noted to be normal. No other intraabdominal abnormalities were appreciated. The uterus was placed back in the abdomen. The peritoneum was reapproximated in a running layer using 2-0 Vicryl suture. The musculature was reapproximated in a single interrupted suture. The fascia was reapproximated using 1 Vicryl in a running fashion, and subcutaneous tissue was irrigated and reapproximated in a running fashion, and the skin was reapproximated in subcuticular fashion, and Steri-Strips were applied. The patient tolerated procedure well and is recovering in stable condition after the procedure in the PACU. FRANCHESKA LOYA DO /[id number]
== END 2018-04-29 12:30 | disposition home or self-care (01) | DRG 519 ==
LOC: JSAMEDAYSX 05:45 → EDSTATUS 10:00 → J3W 19:30
PROVIDERS: ADMIT Obstetrics & Gynecology; ATTEND Obstetrics & Gynecology
PROC: 0UB90ZZ Excision of Uterus, Open Approach (ICD-10-PCS; principal; 2018-04-27 14:30)
DX: D25.9 Leiomyoma of uterus, unspecified (principal); D64.9 Anemia, unspecified; N93.8 Other specified abnormal uterine and vaginal bleeding
CPT/HCPCS: 36415; 80048; 84703; 85025; 86850; 86900; 86901; 88305-TC; 94760; J0131

== ENCOUNTER 2019-06-18 09:52 | Day surgery (SDC) | payer OTHER ==
[2019-06-17 11:20] VITALS: BMI 28.0
[2019-06-18] MEDS ORDERED: DEXAMETHASONE SOD PHOSPHATE 4 MG/1 ML VIAL ONE (10:25)
[2019-06-18] MEDS ORDERED: PROPOFOL 20 ML ONE (10:25)
[2019-06-18] MEDS ORDERED: ceFAZolin SODIUM 1 GM VIAL ONE (10:25)
[2019-06-18] MEDS ORDERED: SODIUM CHLORIDE 0.9% P/F 10 ML VIAL IJ ONE (10:25)
[2019-06-18] MEDS ORDERED: MIDAZOLAM HCL 2 MG/2 ML SINGLE DOSE VIAL ONE ×2 (10:28→10:47)
[2019-06-18] MEDS ORDERED: ROPIVACAINE HCL 0.5% 30ML VIAL ONE (10:47)
[2019-06-18] MEDS ORDERED: NEOSTIGMINE METHYLSULFATE 0.5 MG/ML - 10 ML MDV ONE (10:50)
[2019-06-18] MEDS ORDERED: oxyCODONE HCL 5 MG TABLET PO PRN ×2 (11:37)
[2019-06-18] MEDS ORDERED: ONDANSETRON 4 MG/2 ML VIAL IVPUSH PRN (11:37)
[2019-06-18] MEDS ORDERED: LACTATED RINGERS SOLUTION 1,000 ML IV SCH (11:45)
[2019-06-18] MEDS ORDERED: ePHEDrine SULFATE 50 MG/1 ML AMPULE ONE (12:38)
[2019-06-18] MEDS ORDERED: EPINEPHrine 1:1,000 1 MG/1 ML - 30ML VIAL (INJECTION) ONE (12:43)
[2019-06-18] MEDS ORDERED: BUPIVACAINE HCL/PF 2.5 MG/ML - 30 ML VIAL IJ ONE (12:53)
[2019-06-18] MEDS ORDERED: KETOROLAC TROMETHAMINE 30 MG/1 ML VIAL ONE (13:01)
[2019-06-18] MEDS ORDERED: ONDANSETRON 4 MG/2 ML VIAL ONE ×2 (13:01→17:26)
[2019-06-18] MEDS ORDERED: BUPIVACAINE HCL/PF 0.25% (2.5MG/ML) 10 ML VIAL IJ ONE (13:10)
[2019-06-18] MEDS ORDERED: SUCCINYLCHOLINE CHLORIDE 200 MG/10 ML SYRINGE ONE (13:43)
[2019-06-18 18:11] VITALS: TEMP 98.2
[2019-06-18 19:36] VITALS: BP 122/79; PULSE 84
--- NOTE | 2019-06-18 19:47 | OPR ---
Date of Procedure: 06/18/2019 Procedure: Right Shoulder- 1. Diagnostic arthroscopy. 2. Arthroscopic extensive debridement of glenohumeral joint (23161). 3. Arthroscopic subacromial decompression (38985). 4. Arthroscopic rotator cuff repair: Supraspinatus, Infraspinatus (06240). 5. Arthroscopic-assisted biceps tenodesis-subpectoral (69748). 6. Distal clavicle resection (75660, append 51 modifier). Preoperative Diagnoses: 1. Rotator cuff tear- Supraspinatus, Infraspinatus. 2. Biceps tendon degeneration. 3. Glenohumeral synovitis. 4. AC joint arthrosis. Postoperative Diagnoses: 1. Rotator cuff tear- Supraspinatus, Infraspinatus. 2. Biceps tendon degeneration and tear. 3. Labral degeneration and fraying; SLAP tear. 4. Glenohumeral synovitis. 5. Subacromial bursitis and adhesions. 6. AC joint arthrosis Surgeon: Jhoan Mcclelland DO Assistants: Vinay Saenz DO Anesthesia: General anesthesia, IV regional with interscalene nerve block. Estimated Blood Loss: Minimal Drains: None Total IV Fluids: Per anesthesia record Specimens: None Implants: Sánchez and Nephew 5.5mm Healicoil PEEK [place], triple loaded (2); 4.5mm FootPrint PEEK [place]; 1.9mm SutureFix [place], double loaded with suture Complications: None Disposition: PACU Condition: Hemodynamically stable Indications: Kaleigh Ngo presented to us with chronic right shoulder pain that failed conservative measures. Her symptoms, signs, and imaging were consistent with the above noted diagnoses. She was an appropriate candidate for surgery due her young age, ongoing symptoms and dysfunction despite conservative measures. She ultimately elected to proceed with surgical intervention after discussion of the risks, benefits, alternatives. We discussed risks including but not limited to, bleeding, pain, infection, scarring, damage to neurovascular structures, blood clots, pulmonary embolus, need for additional surgery, incomplete relief of pain, and incomplete return of function. She expressed understanding and wished to proceed. She underwent preoperative medical evaluation clearance and optimization prior to surgery. Procedure Details: She was identified in the preoperative area. The shoulder was marked as the operative site and consent was completed and confirmed. An interscalene block was performed by the anesthesia team in the preoperative holding area. She was later transferred to the operating room and placed in supine position the operating room. General anesthesia was induced without difficulty. She was repositioned into beach chair with all bony prominences appropriately padded. The neck was in neutral alignment. A surgical time-out was performed identifying the correct patient, procedure, and site. Antibiotics were given within 1 hour prior to surgical incision. The upper extremity was prepped and draped in standard sterile fashion. Examination under anesthesia: Passive range of motion of the right shoulder showed forward elevation of 170, abduction 100, external rotation at side 40 , SABER 90, SABIR 60. This was compared to her contralateral shoulder which shows forward elevation of 170, abduction 100 external rotation at side 60, SABER 90, SABIR 40, and internal rotation to her mid thoracic spine. Diagnostic arthroscopy: We began the procedure with the standard posterolateral portal, entered the glenohumeral joint, and an anterior portal was made within the rotator cuff interval under direct visualization with the assistance of a spinal needle. A probe was used to assist with diagnostic arthroscopy and we visualized from both posteriorly and anteriorly. Evaluation of the glenohumeral joint showed significant synovitis globally. The superior labrum had a degenerative tear that was debrided back to a stable base. The anterior labrum was probed and found to be frayed. The posterior labrum was probed and found to be frayed. There were no loose bodies in the inferior pouch. There was no HAGL lesion. The biceps tendon showed hyperemia and fraying. The rotator cuff interval was torn. The axillary recess was empty. The subscapularis was probed and found to be intact. The rotator cuff was found to be torn from the greater tuberosity in a reverse L-shaped pattern that included the rotator interval. tissue. The articular surface of the teres minor tendon was intact. The glenoid and humeral head showed no significant chondral defects. Evaluation of the subacromial space showed significant bursitis and adhesions. There was a small acromial spur anteriorly. There was fraying of the CA ligament. The AC joint was narrowed, with arthritic changes including og- articular osteophytes and sclerosis. The rotator cuff was found to be torn from the tuberosity. Arthroscopic extensive debridement of the glenohumeral joint: We used a combination of the arthroscopic motorized shaver and radiofrequency device to perform an extensive debridement inside the glenohumeral joint anteriorly and posteriorly. The hyperemia, erythema, and synovitis of the joint and joint capsule was aggressively debrided both anteriorly and posteriorly. Synovitic fronds were thermally ablated. Labral fraying and degeneration was also resected and debrided to a stable edge anteriorly and posteriorly. The biceps tendon was tenotomized as it inserted into the superior labral complex and the remaining portion of the biceps tendon was allowed to retract into the bicipital groove for later tenodesis. Arthroscopic-assisted biceps tenodesis: We made a 2 cm incision along Travis's lines in the axillary fold. Sharp dissection was carried out down to the level of the pectoralis major. The plane between the pectoralis major and the short head of biceps tendon was developed bluntly down to the level of the humeral bone, where we identified the long head of biceps tendon and delivered it retrograde out of the wound. The underlying soft tissue was resected and the bone was frayed with a 1/4-inch osteotome. We then selected a 1.9 SutureFix anchor and placed the anchor high within the bicipital groove underneath the pectoralis major tendon. The sutures were then passed just proximal to the musculotendinous junction of the long head of biceps in an alternating simple versus lasso loop configuration. Tying these sutures down tenodesed the tendon onto the underlying frayed humeral bone. We used an arthroscopic knot pusher to get excellent knot fixation, and then arthroscopic cane cutter to cut the remaining length of the suture. The remaining length of the biceps tendon was resected. We confirmed our arthroscopic knots and position of the biceps tendon underneath the pectoralis major with the arthroscope. We thoroughly irrigated the wound. Arthroscopic subacromial decompression: The subacromial space was entered from posteriorly. A separate anterior-lateral portal and posterior-lateral portal were made for additional instrumentation and visualization. We then visualized the rotator cuff pattern as noted above, and performed our subacromial decompression in a systematic fashion from anterior to posterior and from lateral to medial, removing the bursal tissue carefully. This was done with a radiofrequency device and motorized shaver. The undersurface of the acromion was skeletonized and gently debrided to a flat smooth undersurface. There was a small anterior-inferior spur that was resected with a motorized bur. Arthroscopic rotator cuff repair: We turned our attention to rotator cuff repair of the supraspinatus and infraspinatus. We debrided the remnant tissue over the bicipital groove and greater tuberosity and debrided frayed tissue from the rotator cuff tendon edge. We debrided the greater tuberosity with a motorized bur to slightly decorticate it, preparing a bony bed to receive the rotator cuff tendon. We used two triple loaded 5.5 mm Sánchez and Nephew PEEK helicoil anchors for repair of the rotator cuff and they were placed in the rotator cuff footprint lateral to the articular margin, one anteriorly and one posteriorly. These had excellent fixation within the bone. The sutures from each anchor were then passed through the supraspinatus and infraspinatus with the tissue-piercing Firstpass, approximately 1.5 cm from its torn edge in a simple stitch configuration. There anterior sutures are passed first and the sutures were then shuttled appropriately through the cannulas and arthroscopic knots were tied with a knot pusher. This reduced the reverse L-shaped tear to the anterior footprint. The posterior sutures were then passed and tied in a similar manner. An ultratape suture was placed through a remaining unreduced flap of cuff tissue in a horizontal mattress configuration and passed through a Footprint PEEK anchor and impacted into the lateral aspect of the greater tuberosity. This achieved good fixation of the rotator cuff into the greater tuberosity with good compression of the rotator cuff into the the tuberosity footprint from medial to lateral. We promoted some localized bone bleeding and marrow elements with an awl in the lateral aspect of the greater tuberosity. We thoroughly irrigated the subacromial space and we removed the arthroscopic equipment. Arthroscopic AC joint resection: The AC joint space was narrowed, with arthritic changes including og-articular osteophytes and sclerosis. We used the anterior and lateral portals for instrumentation. Soft tissue within the AC joint was removed with a motorized shaver and radiofrequency device. We resected the joint by using a barrel santino 4 mm in diameter. 2-3 mm of the medial aspect of the acromion was burred to a flat surface and about 6-7 mm of the lateral end of the clavicle was similarly resected with the santino. The surrounding osteophytes were also resected. The AC joint was stable upon completion of the distal clavicle excision. Approximately 1 cm of space was present between the acromion and clavicle after the resection. We thoroughly irrigated the subacromial space and axillary incision and we removed the arthroscopic equipment. Wound closure: The arthroscopic portal incisions were closed with 3-0 Nylon sutures. The axillary incision was closed with 2-0 Vicryl, 3-0 Monocryl subcuticular stitch, and Dermabond skin glue. The shoulder was sterilely dressed and placed in a shoulder immobilizer. Post-operative Details: I spoke with the family regarding the operation after surgery. Postoperative rehabilitation: Arthroscopic rotator cuff repair protocol. She will remain in a shoulder immobilizer for 6 weeks. Early passive range of motion okay with no limits and advance as tolerated; no pendulums. No strengthening for at least 5 months. Attestation for metal moulder's assistant: Dr. Vinay Saenz acted as the metal moulder's assistant. There was no qualified resident or physician teachers' assistant available to do so.
== END 2019-06-18 19:25 | disposition home or self-care (01) ==
LOC: FASU 09:52
PROVIDERS: ATTEND Orthopaedic Surgery
PROC: 0RBJ4ZZ Excision of Right Shoulder Joint, Percutaneous Endoscopic Approach (ICD-10-PCS; 2019-06-18)
PROC: 0PB94ZZ Excision of Right Clavicle, Percutaneous Endoscopic Approach (ICD-10-PCS; 2019-06-18)
PROC: 0LS10ZZ Reposition Right Shoulder Tendon, Open Approach (ICD-10-PCS; 2019-06-18)
PROC: 0LQ14ZZ Repair Right Shoulder Tendon, Percutaneous Endoscopic Approach (ICD-10-PCS; principal; 2019-06-18 13:08)
PROC: 0RNJ4ZZ Release Right Shoulder Joint, Percutaneous Endoscopic Approach (ICD-10-PCS; 2019-06-18 13:08)
DX: M75.121 Complete rotator cuff tear or rupture of right shoulder, not specified as traumatic (principal); M66.811 Spontaneous rupture of other tendons, right shoulder; S43.431A Superior glenoid labrum lesion of right shoulder, initial encounter; X58.XXXA Exposure to other specified factors, initial encounter; Y93.9 Activity, unspecified; Y92.9 Unspecified place or not applicable; M65.811 Other synovitis and tenosynovitis, right shoulder; M75.51 Bursitis of right shoulder; M19.011 Primary osteoarthritis, right shoulder; M75.01 Adhesive capsulitis of right shoulder
CPT/HCPCS: 84703; 94760

== ENCOUNTER 2023-05-31 15:51 | Emergency (ER) | payer OTHER ==
[2023-05-31 16:02] VITALS: BP 119/73; PULSE 69; RESP 17; TEMP 98; BMI 31.2
[2023-05-31] MEDS ORDERED: SODIUM CHLORIDE 0.9% 500 ML INFUS.BAG IV ONE (17:11)
[2023-05-31] MEDS ORDERED: METOCLOPRAMIDE HCL INJECTION 10 MG/2 ML VIAL IVPUSH ONE (17:11)
[2023-05-31] MEDS ORDERED: ACETAMINOPHEN 1000 MG/100 ML BAG IVPB ONE (17:11)
[2023-05-31] MEDS ORDERED: ACETAMINOPHEN INJECTION 100 ML IVPB ONE (17:17)
[2023-05-31] MEDS ORDERED: METOCLOPRAMIDE HCL INJECTION 10 MG/2 ML VIAL ONE (17:17)
[2023-05-31 18:12] LABS: POTASSIUM 4.2 mmol/L (3.5-5.1)
[2023-05-31 18:14] LABS: CALCIUM 8.9 mg/dL (8.5-10.1)
[2023-05-31 18:15] LABS: ALBUMIN 4.1 g/dl (3.4-5.0); BLOOD UREA NITROGEN 16.1 mg/dL (7-18)
[2023-05-31 18:17] LABS: CREATININE 0.7 mg/dL (0.55-1.3)
[2023-05-31 18:20] LABS: BILIRUBIN,TOTAL 0.3 mg/dL (0.2-1); TOT PROT 7.7 g/dl (6.4-8.2)
[2023-05-31 18:37] LABS: BASO % 0.7 % (0-2.0); EOS % 1.1 % (0-4.5); HEMATOCRIT 39.8 % (32.4-45.2); HEMOGLOBIN 13.7 GM/dL (10.7-15.3); LYMPH % 40.9 % (8-40); MCH 31.1 pg (25.7-33.7); MCHC 34.4 g/dl (32.0-36.0); MEAN CELL VOLUME 90.2 fl (80-96); MEAN PLT VOLUME 7.6 fl (7.5-11.1); MONO % 8.4 % (3.8-10.2); NEUT % 48.9 % (42.8-82.8); PLATELET COUNT 354 10^3/uL (134-434); RBC 4.42 M/mm3 (3.60-5.2); RDW 13.4 % (11.6-15.6)
[2023-05-31 18:46] LABS: INR 0.98 (0.83-1.09); PROTHROMBIN TIME (PATIENT) 11.4 SEC (9.7-13.0)
[2023-05-31 18:49] LABS: ACTIVATED PTT 33.2 SECONDS (25.2-36.5)
== END 2023-05-31 19:05 | disposition home or self-care (01) ==
LOC: JER 15:51
PROC: 3E033NZ Introduction of Analgesics, Hypnotics, Sedatives into Peripheral Vein, Percutaneous Approach (ICD-10-PCS; principal; 2023-05-31)
PROC: 3E033GC Introduction of Other Therapeutic Substance into Peripheral Vein, Percutaneous Approach (ICD-10-PCS; 2023-05-31)
DX: G43.909 Migraine, unspecified, not intractable, without status migrainosus (principal); H53.149 Visual discomfort, unspecified; Z20.822 Contact with and (suspected) exposure to COVID-19
CPT/HCPCS: 0241U-QW; 36415; 70450-TC; 80053; 83540; 83550; 85025; 85610; 85730; 99284-25

== ENCOUNTER 2024-03-11 15:42 | Emergency (ER) | payer OTHER ==
[2024-03-11 15:55] VITALS: RESP 18; TEMP 98.3; BMI 24.5
[2024-03-11 16:57] LABS: BASO % 0.5 % (0-2.0); EOS % 1.1 % (0-4.5); HEMATOCRIT 38.7 % (32.4-45.2); HEMOGLOBIN 13.1 GM/dL (10.7-15.3); LYMPH % 25.1 % (8-40); MCH 31.1 pg (25.7-33.7); MEAN CELL VOLUME 91.4 fl (80-96); MEAN PLT VOLUME 7.3 fl (7.5-11.1); MONO % 7.5 % (3.8-10.2); NEUT % 65.8 % (42.8-82.8); PLATELET COUNT 333 10^3/uL (134-434); RBC 4.23 M/mm3 (3.60-5.2); RDW 13.5 % (11.6-15.6); WHITE BLOOD COUNT 6.4 K/mm3 (4.0-10.0)
[2024-03-11] MEDS ORDERED: ACETAMINOPHEN INJECTION 100 ML IVPB ONE (17:04)
[2024-03-11] MEDS: ACETAMINOPHEN 1000 MG/100 ML BAG IVPB ONE (17:14)
[2024-03-11 17:18] LABS: BLOOD UREA NITROGEN 13.9 mg/dL (7-18)
[2024-03-11 17:21] LABS: CREATININE 0.6 mg/dL (0.55-1.3)
[2024-03-11 17:22] LABS: BILIRUBIN,TOTAL 0.4 mg/dL (0.2-1); TOT PROT 7.6 g/dl (6.4-8.2)
[2024-03-11 19:10] VITALS: BP 113/77; PULSE 50
[2024-03-11 20:49] LABS: HIV INTERPRETATION NEGATIVE (NEGATIVE)
== END 2024-03-11 19:23 | disposition home or self-care (01) ==
LOC: JER 15:42 → UNDOADMOB 17:39 → JERBED 17:39 → JER 19:23
PROC: 3E033NZ Introduction of Analgesics, Hypnotics, Sedatives into Peripheral Vein, Percutaneous Approach (ICD-10-PCS; principal; 2024-03-11)
DX: R07.89 Other chest pain (principal)
CPT/HCPCS: 36415; 71046-TC-FY; 80053; 84484; 85025; 86803; 87389; 93005; 93010; 99285-25; J0131